=== PATIENT | female | born 1955 | race Caucasian/White ===

== ENCOUNTER 2021-02-18 09:52 | Day surgery (SDC) | payer OTHER, SELFPAY ==
[~2021-02-18] VITALS: Ht 10.2 cm; Wt 71.2 kg
[2021-02-18] MEDS ORDERED: POLYMYXIN 500,000/BACIT.10,000 UNITS in NS IRR 1 L IR ONE (11:20)
[2021-02-18] MEDS ORDERED: CEFAZOLIN SOD 1 GM in D5W 50 ML IV ONE (11:30)
[2021-02-18] MEDS ORDERED: hydrALAZINE HCL 20 MG/ML VIAL IVP PRN (12:00)
[2021-02-18] MEDS ORDERED: LR 1,000 ML IV SCH (12:00)
[2021-02-18] MEDS ORDERED: MEPERIDINE HCL/PF 25 MG/ML DISP.SYRIN IVP PRN (12:00)
[2021-02-18] MEDS ORDERED: LABETALOL 100 MG/ 20ML VIAL IVP PRN (12:00)
[2021-02-18] MEDS ORDERED: HYDROmorphone 1 MG/ML INJ. CARTRIDGE IVP PRN ×2 (12:00→12:30)
[2021-02-18] MEDS ORDERED: MIDAZOLAM HCL 2 MG/2 ML VIAL (VERSED) IVP PRN (12:00)
[2021-02-18] MEDS ORDERED: METOCLOPRAMIDE HCL 10 MG/2 ML VIAL IVP PRN (12:00)
[2021-02-18] MEDS ORDERED: HYDROcodone/ACETAMIN 5-325 MG TAB (NORCO/ VICODIN) PO PRN ×2 (12:30)
[2021-02-18] MEDS ORDERED: D5/0.45 NS 1,000 ML IV SCH (12:30)
[2021-02-18] MEDS ORDERED: KETOROLAC TROMETHAMINE 30 MG VIAL ONE (12:39)
[2021-02-18] MEDS ORDERED: fentaNYL CITRATE/PF 100 MCG/2 ML AMP ONE (12:39)
[2021-02-18] MEDS ORDERED: DEXAMETHASONE SOD PHOSPHATE 4 MG/ML VIAL ONE (12:39)
[2021-02-18] MEDS ORDERED: ROCURONIUM BROMIDE 10 MG/ML (ZEMURON) ONE (12:39)
[2021-02-18] MEDS ORDERED: SUGAMMADEX SODIUM 200 MG/2 ML VIAL IV ONE (12:39)
[2021-02-18] MEDS ORDERED: BUPIVACAINE /PF 0.25% 30 ML VIAL INJ ONE (12:39)
[2021-02-18] MEDS ORDERED: PROPOFOL 200MG/ 20ML VIAL (DIPRIVAN) IV ONE (12:39)
[2021-02-18] MEDS ORDERED: DESFLURANE 15 MIN GAS INH ONE (12:39)
[2021-02-18] MEDS ORDERED: LR 1,000 ML IV.SOLN IV ONE (12:39)
[2021-02-18] MEDS ORDERED: ONDANSETRON HCL 4 MG/2 ML VIAL ONE ×2 (12:39→15:44)
[2021-02-18] MEDS ORDERED: LIDOCAINE 1% 10 MG/ML, 20 ML MDV ONE (12:39)
[2021-02-18] MEDS ORDERED: MIDAZOLAM HCL 5 MG/ML VIAL (VERSED) IV ONE (12:39)
[2021-02-18] MEDS: HYDROmorphone 1 MG/ML INJ. CARTRIDGE IVP PRN ×4 (12:56→14:00)
[2021-02-18] MEDS ORDERED: HYDROmorphone 1 MG/ML INJ. CARTRIDGE ONE ×2 (12:57→15:20)
[2021-02-18] MEDS ORDERED: ONDANSETRON HCL 4 MG/2 ML VIAL IVP ONE (15:45)
[2021-02-18] MEDS ORDERED: METOCLOPRAMIDE HCL 10 MG/2 ML VIAL IVP ONE (16:30)
[2021-02-18] MEDS ORDERED: METOCLOPRAMIDE HCL 10 MG/2 ML VIAL ONE (16:32)
[2021-02-18 17:53] VITALS: BP_SYST 121
== END 2021-02-18 16:45 | disposition home or self-care (01) ==
LOC: SDS 09:52 → SMU 09:54 → SDS 16:45
PROVIDERS: ATTEND Colon & Rectal Surgery
DX: K43.0 Incisional hernia with obstruction, without gangrene (principal); I10 Essential (primary) hypertension; E11.9 Type 2 diabetes mellitus without complications; K21.9 Gastro-esophageal reflux disease without esophagitis; E66.01 Morbid (severe) obesity due to excess calories; E03.9 Hypothyroidism, unspecified; Z20.822 Contact with and (suspected) exposure to COVID-19; Z79.899 Other long term (current) drug therapy
CPT/HCPCS: 49566; 49568; 64488; 82962; 88302; C1781; J0690; J1100; J1170; J1885; J2001; J2250; J2405; J2704; J2765; J3010; J3490 ×2; J7060; J7120; U0003; J3465